=== PATIENT | female | born 1960 | race Caucasian/White ===

== ENCOUNTER 2019-01-26 12:26 | Observation (INO) | payer BC ==
[2019-01-26] MEDS ORDERED: Ondansetron 8 MG Tab.DIS PO ONE (12:46)
[2019-01-26] MEDS ORDERED: Sodium Chloride 0.9% 1,000 ML IV ONE ×3 (12:47→14:42)
--- NOTE | 2019-01-26 12:48 | EDM.PDOC ---
ED HPI GENERAL MEDICAL PROBLEM - General Chief Complaint: Gastrointestinal Problem Stated Complaint: VOMMITING,STOMACH PAIN, DIAHREAD Time Seen by Provider: 01/26/19 12:33 Source of Information: Reports: Patient, Family History Limitations: Reports: No Limitations - History of Present Illness INITIAL COMMENTS - FREE TEXT/NARRATIVE: 59 y.o.w.f with a H/O NIDDM, came with her to the ED due to severe N/V/ D. One of her family members had similar symptoms a few days ago. Food poisoning unlikely. Pt passed several brown colored liquid, not bloody, stool and vomited multiple times SEAT MENDER. No SOB, NO CP. Her abdomen feels bloated and she has mid upper abd. pain. Pt felt dizzy on arrival as well. No other acute med issues at this time. BP 123/88 RR 20 Pulse ox 100% on RA HR 112, Temp 36.8 Onset Date: 01/25/19 Onset Time: 09:00 Duration: Day(s):, Intermittent Location: Reports: Abdomen Quality: Reports: Dull Severity: Moderate Improves with: Reports: Rest Worsens with: Reports: Movement Context: Reports: Sick Contact (with a family member) Associated Symptoms: Reports: Nausea/Vomiting, Weakness Abdominal Pain Score (Numeric/FACES): 2 generalyzed body aches/restless leg syndrome Pain Score (Numeric/FACES): 2 - Related Data Allergies Allergy/AdvReac Type Severity Reaction Status Date / Time Sulfa (Sulfonamide Allergy Hives Verified 01/26/19 12:29 Antibiotics) Home Meds: Home Meds DULoxetine HCl [Duloxetine HCl] 60 mg PO DAILY 01/26/19 [History] Empagliflozin [Jardiance] 10 mg PO DAILY 01/26/19 [History] Gabapentin [Neurontin] 600 mg PO DAILY 01/26/19 [History] Liraglutide [Victoza] 1.8 unit SUBCUT DAILY 01/26/19 [History] Losartan Potassium 25 mg PO DAILY 01/26/19 [History] Pen Needle, Diabetic [Ulticare Pen Needle] 1 each .ROUTE ASDIRECTED 01/26/19 [ History] Pravastatin Sodium 10 mg PO DAILY 01/26/19 [History] Rotigotine [Neupro] 1 patch TOP DAILY 01/26/19 [History] buPROPion [buPROPion XL] 150 mg PO BEDTIME 01/26/19 [History] metFORMIN HCl [Metformin HCl] 1,000 mg PO BIDMEALS 01/26/19 [History] Ondansetron [Zofran ODT] 4 mg PO Q6H PRN #15 tab.dis 01/27/19 [Rx] Past Medical History HEENT History: Reports: Impaired Vision Cardiovascular History: Reports: High Cholesterol Psychiatric History: Reports: Anxiety, Depression Endocrine/Metabolic History: Reports: Diabetes, Type II, Obesity/BMI 30+ Social & Family History - Tobacco Use Smoking Status *Q: Never Smoker ED ROS GENERAL - Review of Systems Review Of Systems: See Below Constitutional: Reports: Malaise, Weakness HEENT: Reports: No Symptoms Respiratory: Reports: No Symptoms Cardiovascular: Reports: No Symptoms Endocrine: Reports: High Glucose GI/Abdominal: Reports: Abdominal Pain (epigastric) : Reports: No Symptoms Musculoskeletal: Reports: No Symptoms Skin: Reports: No Symptoms Neurological: Reports: No Symptoms Psychiatric: Reports: No Symptoms Hematologic/Lymphatic: Reports: No Symptoms Immunologic: Reports: No Symptoms ED EXAM, GI/ABD - Physical Exam Exam: See Below Exam Limited By: No Limitations General Appearance: Alert, WD/WN, Moderate Distress Eyes: Bilateral: Normal Appearance Ears: Normal External Exam Nose: Normal Inspection Throat/Mouth: Normal Inspection, Normal Lips, Normal Voice, No Airway Compromise , Other (dry mucosal membrane) Head: Atraumatic, Normocephalic Neck: Normal Inspection, Supple, Non-Tender, Full Range of Motion Respiratory/Chest: No Respiratory Distress, Lungs Clear Cardiovascular: Normal Peripheral Pulses, Regular Rate, Rhythm, No Edema GI/Abdominal Exam: No Organomegaly, Tender (epigastric), Abnormal Bowel Sounds (Female) Exam: Deferred Rectal (Female) Exam: Deferred Back Exam: Normal Inspection, Full Range of Motion Extremities: Normal Inspection, Normal Range of Motion, Non-Tender, No Pedal Edema, Normal Capillary Refill Neurological: Alert, Oriented, CN II-XII Intact, Normal Cognition, Abnormal Gait (too weak to ambulate) Psychiatric: Normal Affect, Normal Mood Skin Exam: Warm, Dry, Intact, Normal Color, No Rash Lymphatic: No Adenopathy Course - Vital Signs Text/Narrative:: 59 y.o.w.f with a H/O NIDDM, came with her to the ED due to severe N/V/ D. One of her family members had similar symptoms a few days ago. Food poisoning unlikely. Pt passed several brown colored liquid, not bloody, stool and vomited multiple times SEAT MENDER. No SOB, NO CP. Her abdomen feels bloated and she has mid upper abd. pain. Pt felt dizzy on arrival as well. No other acute med issues at this time. BP 123/88 RR 20 Pulse ox 100% on RA HR 112, Temp 36.8 PE: 59 y.o.w.f with NIDDM came to the ED with N/V/D weakness and dizziness Imaging: Not indicated. Labs: Mg 1.6, K 4.2 Na 137 Carbon Dioxide 22 BUN 20 Cr 0.9 GFR > 60 BUN/CR 22 Glc 234 Hgb 16.8, UA: Pos for UTI , >1000mg Glc in urine Impression: Gastroenteritis, Hypomagnesia, Dehydration,UTI, Gen weakness Tx: 2 liters NS, Magnesium i v, Levaquin, Zofran, Bentyl, Protonix, Tylenol, GI cocktail, Imodium 4 mg, 2mg 2mg, Reexam: Overall improved but too weak to ambulate. 5.35 pm Consultation: Dr. Rizvi, Hospitalist: Accepted the pt to admit to OBS Plan: Admit to OBS, Tx plan discussed with family Last Recorded V/S: Last Vital Signs Temp 36.6 C 01/27/19 12:00 Pulse 90 01/27/19 12:00 Resp 14 01/27/19 12:00 BP 113/73 01/27/19 12:00 Pulse Ox 97 01/27/19 12:00 - Orders/Labs/Meds Labs: Laboratory Tests 01/26/19 01/26/19 01/26/19 Range/Units 13:00 13:00 13:00 WBC 9.3 (4.5-12.0) X10-3/uL RBC 5.49 H (3.23-5.20) x10(6)uL Hgb 16.6 H (11.5-15.5) g/dL Hct 48.3 (30.0-51.3) % MCV 88.0 (80-96) fL MCH 30.2 (27.7-33.6) pg MCHC 34.3 (32.2-35.4) g/dL RDW 13.1 (11.5-15.5) % Plt Count 344 (125-369) X10(3)uL MPV 6.8 L (7.4-10.4) fL Add Manual Diff Yes Neutrophils % (Manual) 89 H (46-82) % Lymphocytes % (Manual) 4 L (13-37) % Monocytes % (Manual) 6 (4-12) % Eosinophils % (Manual) 1 (0-5) % Sodium 137 (135-145) mmol/L Potassium 4.2 (3.5-5.3) mmol/L Chloride 100 (100-110) mmol/L Carbon Dioxide 22 (21-32) mmol/L BUN 20 H (7-18) mg/dL Creatinine 0.9 (0.55-1.02) mg/dL Est Cr Clr Drug Dosing TNP Estimated GFR (MDRD) > 60 (>60) BUN/Creatinine Ratio 22.2 H (9-20) Glucose 242 H (80-116) mg/dL Calcium 9.7 (8.6-10.2) mg/dL Magnesium 1.6 L (1.8-2.5) mg/dL Troponin I (<0.017-0.056) ng/mL Urine Color (YELLOW) Urine Appearance (CLEAR) Urine pH (5.0-6.5) Ur Specific [place] (1.010-1.025) Urine Protein (NEGATIVE) mg/dL Urine Glucose (UA) (NORMAL) mg/dL Urine Ketones (NEGATIVE) mg/dL Urine Occult Blood (NEGATIVE) Urine Nitrite (NEGATIVE) Urine Bilirubin (NEGATIVE) Urine Urobilinogen (NEGATIVE) mg/dL Ur Leukocyte Esterase (NEGATIVE) Urine RBC (0-5) Urine WBC (0-5) Ur Squamous Epith Cells (NS,R,O) Urine Bacteria (NS) 01/26/19 01/26/19 Range/Units 13:00 15:19 WBC (4.5-12.0) X10-3/uL RBC (3.23-5.20) x10(6)uL Hgb (11.5-15.5) g/dL Hct (30.0-51.3) % MCV (80-96) fL MCH (27.7-33.6) pg MCHC (32.2-35.4) g/dL RDW (11.5-15.5) % Plt Count (125-369) X10(3)uL MPV (7.4-10.4) fL Add Manual Diff Neutrophils % (Manual) (46-82) % Lymphocytes % (Manual) (13-37) % Monocytes % (Manual) (4-12) % Eosinophils % (Manual) (0-5) % Sodium (135-145) mmol/L Potassium (3.5-5.3) mmol/L Chloride (100-110) mmol/L Carbon Dioxide (21-32) mmol/L BUN (7-18) mg/dL Creatinine (0.55-1.02) mg/dL Est Cr Clr Drug Dosing Estimated GFR (MDRD) (>60) BUN/Creatinine Ratio (9-20) Glucose (80-116) mg/dL Calcium (8.6-10.2) mg/dL Magnesium (1.8-2.5) mg/dL Troponin I < 0.017 L (<0.017-0.056) ng/mL Urine Color Yellow (YELLOW) Urine Appearance Clear (CLEAR) Urine pH 5.0 (5.0-6.5) Ur Specific [place] 1.015 (1.010-1.025) Urine Protein Negative (NEGATIVE) mg/dL Urine Glucose (UA) >1000 H (NORMAL) mg/dL Urine Ketones 50 H (NEGATIVE) mg/dL Urine Occult Blood Negative (NEGATIVE) Urine Nitrite Negative (NEGATIVE) Urine Bilirubin Negative (NEGATIVE) Urine Urobilinogen Normal (NEGATIVE) mg/dL Ur Leukocyte Esterase Moderate H (NEGATIVE) Urine RBC 0-5 (0-5) Urine WBC 5-10 H (0-5) Ur Squamous Epith Cells Occasional (NS,R,O) Urine Bacteria Few H (NS) Meds: Medications Discontinued Medications Generic Name Dose Route Start Last Admin Trade Name Freq PRN Reason Stop Dose Admin Acetaminophen 650 mg 01/26/19 16:03 01/26/19 16:23 Tylenol PO 01/26/19 16:04 650 mg NOW STA Administration Acetaminophen 650 mg 01/26/19 22:48 01/27/19 07:37 Tylenol PO 650 mg Q6H PRN Administration Fever Al Hydroxide/Mg Hydroxide 15 0 ml 01/26/19 16:18 01/26/19 16:24 ml/ Lidocaine HCl 15 ml PO 01/26/19 16:19 15 ml ONETIME ONE Administration Dicyclomine HCl 10 mg 01/26/19 18:10 01/26/19 18:14 Bentyl PO 01/26/19 18:11 10 mg ONETIME ONE Administration Sodium Chloride 1,000 mls @ 500 mls/hr 01/26/19 12:47 01/26/19 13:00 Normal Saline IV 01/26/19 14:46 500 mls/hr .BOLUS ONE Administration Sodium Chloride 1,000 mls @ 999 mls/hr 01/26/19 13:48 01/26/19 13:49 Normal Saline IV 01/26/19 14:48 999 mls/hr .BOLUS ONE Administration Sodium Chloride 1,000 mls @ 500 mls/hr 01/26/19 14:42 01/26/19 14:45 Normal Saline IV 01/26/19 16:41 500 mls/hr .BOLUS ONE Administration Magnesium Sulfate 4 gm/ Premix 50 mls @ 150 mls/hr 01/26/19 15:28 01/26/19 15 :37 IV 01/26/19 15:29 150 mls/hr ONETIME ONE Administration Sodium Chloride 1,000 mls @ 125 mls/hr 01/26/19 23:00 01/27/19 06:54 Normal Saline IV 125 mls/hr ASDIRECTED [facility] Administration Insulin Human Lispro 0 unit 01/27/19 08:00 01/27/19 12:05 Humalog SUBCUT Not Given TIDMEALS [facility] Protocol Insulin Human Regular 0 unit 01/26/19 23:00 01/27/19 01:12 Humulin R SUBCUT Not Given Q4H [facility] Protocol Levofloxacin 500 mg 01/26/19 15:35 01/26/19 15:52 Levaquin PO 01/26/19 15:36 500 mg ONETIME ONE Administration Loperamide HCl 4 mg 01/26/19 16:15 01/26/19 16:23 Imodium PO 01/26/19 16:16 4 mg ONETIME ONE Administration Loperamide HCl 2 mg 01/26/19 17:44 01/26/19 17:50 Imodium PO 01/26/19 17:45 2 mg ONETIME ONE Administration Loperamide HCl 2 mg 01/26/19 18:49 01/26/19 18:52 Imodium PO 01/26/19 18:50 2 mg ONETIME ONE Administration Morphine Sulfate 4 mg 01/26/19 22:48 01/26/19 23:27 Morphine IVPUSH 01/26/19 22:49 4 mg ONETIME ONE Administration Ondansetron HCl 8 mg 01/26/19 12:46 01/26/19 13:00 Zofran Odt PO 01/26/19 12:47 8 mg ONETIME ONE Administration Ondansetron HCl 4 mg 01/26/19 17:38 01/26/19 22:52 Zofran IV 4 mg Q4H PRN Administration Nausea/Vomiting Pantoprazole Sodium 40 mg 01/26/19 14:45 01/26/19 14:49 Protonix Iv IVPUSH 01/26/19 14:46 40 mg ONETIME ONE Administration Sodium Chloride 10 ml 01/26/19 13:15 01/26/19 22:53 Saline Flush FLUSH 10 ml ASDIRECTED PRN Administration Keep Vein Open Departure - Departure Time of Disposition: 19:00 Disposition: Refer to Observation Condition: Fair Clinical Impression: Gastroenteritis - Discharge Information
[2019-01-26] MEDS: Sodium Chloride 0.9% 10 ML Syringe FLUSH PRN ×2 (13:09→22:53)
[2019-01-26] MEDS ORDERED: Pantoprazole 40 MG Vial IVPUSH ONE (14:45)
[2019-01-26] MEDS ORDERED: Magnesium Sulfate/Water 4 GM in Premix Bag 1 BAG IV ONE (15:28)
[2019-01-26] MEDS ORDERED: Levofloxacin 500 MG Tab PO ONE (15:35)
[2019-01-26] MEDS ORDERED: Acetaminophen 325 MG Tab PO STA (16:03)
[2019-01-26] MEDS ORDERED: Loperamide 2 MG Cap PO ONE ×3 (16:15→18:49)
[2019-01-26] MEDS ORDERED: Alum Hydroxide/Mag Hydroxide 15 ML, Lidocaine 2% 15 ML PO ONE ×2 (16:18)
[2019-01-26] MEDS ORDERED: Ondansetron 4 MG/2 ML SDV IV PRN (17:38)
[2019-01-26] MEDS ORDERED: Dicyclomine 10 MG Cap PO ONE (18:10)
--- NOTE | 2019-01-26 22:58 | PCM.PN ---
- General Info Date of Service: 01/26/19 Admission Dx/Problem (Free Text): 59-year-old female who was admitted earlier today secondary to presumed gastroenteritis with vomiting, diarrhea and some abdominal discomfort. The nursing staff asked me to evaluate the patient secondary to her having aching all over, continuing abdominal pain and low-grade fever. She has had 1 other loose stool since admission. Her abdominal pain is crampy and is mostly upper abdomen. She has a dry mouth. She is aching all over. Her blood sugars have been in the greater than 200 range. Her temperature is 100.7F. Functional Status: Reports: Other (Still with pain and otherwise as above.) Pain Score: 6 - Review of Systems General: Reports: Fever HEENT: Reports: Other (Dry mouth) Pulmonary: Reports: No Symptoms Cardiovascular: Reports: No Symptoms Gastrointestinal: Reports: Abdominal Pain (Cramping in her upper abdomen), Diarrhea Genitourinary: Reports: No Symptoms Musculoskeletal: Reports: Other (Aching all over) Skin: Reports: No Symptoms Neurological: Reports: Weakness (Feels generally weak) - Patient Data Vitals - Most Recent: Last Vital Signs Temp 36.4 C 01/26/19 18:06 Pulse 110 H 01/26/19 18:06 Resp 20 01/26/19 18:06 BP 129/80 01/26/19 18:06 Pulse Ox 95 01/26/19 18:06 Weight - Most Recent: 77.111 kg Lab Results Last 24 Hours: Laboratory Results - last 24 hr 01/26/19 01/26/19 01/26/19 Range/Units 13:00 13:00 13:00 WBC 9.3 (4.5-12.0) X10-3/uL RBC 5.49 H (3.23-5.20) x10(6)uL Hgb 16.6 H (11.5-15.5) g/dL Hct 48.3 (30.0-51.3) % MCV 88.0 (80-96) fL MCH 30.2 (27.7-33.6) pg MCHC 34.3 (32.2-35.4) g/dL RDW 13.1 (11.5-15.5) % Plt Count 344 (125-369) X10(3)uL MPV 6.8 L (7.4-10.4) fL Add Manual Diff Yes Neutrophils % (Manual) 89 H (46-82) % Lymphocytes % (Manual) 4 L (13-37) % Monocytes % (Manual) 6 (4-12) % Eosinophils % (Manual) 1 (0-5) % Sodium 137 (135-145) mmol/L Potassium 4.2 (3.5-5.3) mmol/L Chloride 100 (100-110) mmol/L Carbon Dioxide 22 (21-32) mmol/L BUN 20 H (7-18) mg/dL Creatinine 0.9 (0.55-1.02) mg/dL Est Cr Clr Drug Dosing TNP Estimated GFR (MDRD) > 60 (>60) BUN/Creatinine Ratio 22.2 H (9-20) Glucose 242 H (80-116) mg/dL Calcium 9.7 (8.6-10.2) mg/dL Magnesium 1.6 L (1.8-2.5) mg/dL Troponin I (<0.017-0.056) ng/mL Urine Color (YELLOW) Urine Appearance (CLEAR) Urine pH (5.0-6.5) Ur Specific [place] (1.010-1.025) Urine Protein (NEGATIVE) mg/dL Urine Glucose (UA) (NORMAL) mg/dL Urine Ketones (NEGATIVE) mg/dL Urine Occult Blood (NEGATIVE) Urine Nitrite (NEGATIVE) Urine Bilirubin (NEGATIVE) Urine Urobilinogen (NEGATIVE) mg/dL Ur Leukocyte Esterase (NEGATIVE) Urine RBC (0-5) Urine WBC (0-5) Ur Squamous Epith Cells (NS,R,O) Urine Bacteria (NS) 01/26/19 01/26/19 Range/Units 13:00 15:19 WBC (4.5-12.0) X10-3/uL RBC (3.23-5.20) x10(6)uL Hgb (11.5-15.5) g/dL Hct (30.0-51.3) % MCV (80-96) fL MCH (27.7-33.6) pg MCHC (32.2-35.4) g/dL RDW (11.5-15.5) % Plt Count (125-369) X10(3)uL MPV (7.4-10.4) fL Add Manual Diff Neutrophils % (Manual) (46-82) % Lymphocytes % (Manual) (13-37) % Monocytes % (Manual) (4-12) % Eosinophils % (Manual) (0-5) % Sodium (135-145) mmol/L Potassium (3.5-5.3) mmol/L Chloride (100-110) mmol/L Carbon Dioxide (21-32) mmol/L BUN (7-18) mg/dL Creatinine (0.55-1.02) mg/dL Est Cr Clr Drug Dosing Estimated GFR (MDRD) (>60) BUN/Creatinine Ratio (9-20) Glucose (80-116) mg/dL Calcium (8.6-10.2) mg/dL Magnesium (1.8-2.5) mg/dL Troponin I < 0.017 L (<0.017-0.056) ng/mL Urine Color Yellow (YELLOW) Urine Appearance Clear (CLEAR) Urine pH 5.0 (5.0-6.5) Ur Specific [place] 1.015 (1.010-1.025) Urine Protein Negative (NEGATIVE) mg/dL Urine Glucose (UA) >1000 H (NORMAL) mg/dL Urine Ketones 50 H (NEGATIVE) mg/dL Urine Occult Blood Negative (NEGATIVE) Urine Nitrite Negative (NEGATIVE) Urine Bilirubin Negative (NEGATIVE) Urine Urobilinogen Normal (NEGATIVE) mg/dL Ur Leukocyte Esterase Moderate H (NEGATIVE) Urine RBC 0-5 (0-5) Urine WBC 5-10 H (0-5) Ur Squamous Epith Cells Occasional (NS,R,O) Urine Bacteria Few H (NS) Med Orders - Current: Current Medications Acetaminophen (Tylenol) 650 mg PO Q6H PRN PRN Reason: Fever Sodium Chloride (Normal Saline) 1,000 mls @ 125 mls/hr IV ASDIRECTED [facility] Insulin Human Regular (Humulin R) 0 unit SUBCUT Q4H [facility]; Protocol Morphine Sulfate (Morphine) 4 mg IVPUSH ONETIME ONE Stop: 01/26/19 22:49 Ondansetron HCl (Zofran) 4 mg IV Q4H PRN PRN Reason: Nausea/Vomiting Sodium Chloride (Saline Flush) 10 ml FLUSH ASDIRECTED PRN PRN Reason: Keep Vein Open Last Admin: 01/26/19 13:09 Dose: 10 ml Discontinued Medications Acetaminophen (Tylenol) 650 mg PO NOW STA Stop: 01/26/19 16:04 Last Admin: 01/26/19 16:23 Dose: 650 mg Al Hydroxide/Mg Hydroxide 15 (ml/ Lidocaine HCl 15 ml) 0 ml PO ONETIME ONE Stop: 01/26/19 16:19 Last Admin: 01/26/19 16:24 Dose: 15 ml Dicyclomine HCl (Bentyl) 10 mg PO ONETIME ONE Stop: 01/26/19 18:11 Last Admin: 01/26/19 18:14 Dose: 10 mg Sodium Chloride (Normal Saline) 1,000 mls @ 500 mls/hr IV .BOLUS ONE Stop: 01/26/19 14:46 Last Admin: 01/26/19 13:00 Dose: 500 mls/hr Sodium Chloride (Normal Saline) 1,000 mls @ 999 mls/hr IV .BOLUS ONE Stop: 01/26/19 14:48 Last Admin: 01/26/19 13:49 Dose: 999 mls/hr Sodium Chloride (Normal Saline) 1,000 mls @ 500 mls/hr IV .BOLUS ONE Stop: 01/26/19 16:41 Last Admin: 01/26/19 14:45 Dose: 500 mls/hr Magnesium Sulfate 4 gm/ Premix 50 mls @ 150 mls/hr IV ONETIME ONE Stop: 01/26/19 15:29 Last Admin: 01/26/19 15:37 Dose: 150 mls/hr Levofloxacin (Levaquin) 500 mg PO ONETIME ONE Stop: 01/26/19 15:36 Last Admin: 01/26/19 15:52 Dose: 500 mg Loperamide HCl (Imodium) 4 mg PO ONETIME ONE Stop: 01/26/19 16:16 Last Admin: 01/26/19 16:23 Dose: 4 mg Loperamide HCl (Imodium) 2 mg PO ONETIME ONE Stop: 01/26/19 17:45 Last Admin: 01/26/19 17:50 Dose: 2 mg Loperamide HCl (Imodium) 2 mg PO ONETIME ONE Stop: 01/26/19 18:50 Last Admin: 01/26/19 18:52 Dose: 2 mg Ondansetron HCl (Zofran Odt) 8 mg PO ONETIME ONE Stop: 01/26/19 12:47 Last Admin: 01/26/19 13:00 Dose: 8 mg Pantoprazole Sodium (Protonix Iv) 40 mg IVPUSH ONETIME ONE Stop: 01/26/19 14:46 Last Admin: 01/26/19 14:49 Dose: 40 mg - Exam General: Alert, Oriented, Moderate Distress, Other (Appears in some discomfort) HEENT: Pupils Equal, Pupils Reactive, EOMI, Other (Dry mucous membranes) Neck: Supple, Trachea Midline Lungs: Clear to Auscultation, Normal Respiratory Effort Cardiovascular: No Murmurs, Tachycardia GI/Abdominal Exam: No Mass, Tender (In her upper abdomen, mostly left sided.), Abnormal Bowel Sounds (Some increased bowel sounds.), Other (Lower abdomen is completely nontender even with deep palpation.) Back Exam: Normal Inspection Extremities: Normal Inspection Skin: Warm, Dry, Intact Neurological: No New Focal Deficit Psy/Mental Status: Alert - Problem List Review Problem List Initiated/Reviewed/Updated: Yes - My Orders Last 24 Hours: My Active Orders 01/26/19 22:48 Acetaminophen [Tylenol] 650 mg PO Q6H PRN Morphine 4 mg IVPUSH ONETIME ONE 01/26/19 23:00 Insulin Regular, Human [HumuLIN R] See Protocol SUBCUT Q4H Sodium Chloride 0.9% @ 125 MLS/HR (1000ml) Sodium Chloride 0.9% [Normal Saline] 1,000 ml IV ASDIRECTED - Assessment Assessment:: 59-year-old female with vomiting, diarrhea and abdominal discomfort with low- grade fever and still appears somewhat dehydrated. She is also having elevated blood sugars. She is somewhat tachycardic but her blood pressure is normal. She is having abdominal tenderness upper abdomen but her lower abdomen is quite benign at this point. - Plan Plan:: I will place the patient on normal saline IV fluids at 125 mL per hour. I have also ordered an oral dose of Tylenol now and when necessary every 6 hours. I have also ordered a one-time dose of morphine and I have asked the nursing staff give the patient Zofran with this. I have also ordered Accu-Cheks with a sliding scale of insulin. At this point, we'll continue with this plan of care and I have told the patient to limit her by mouth intake. Dr. Rizvi to reevaluate the patient in the morning.
[2019-01-26] MEDS ORDERED: Insulin Regular, Human 100 Units/ML 3 ML Vial SUBCUT SCH (23:00)
[2019-01-26] MEDS: Sodium Chloride 0.9% 1,000 ML IV SCH (23:00)
[2019-01-26] MEDS: Acetaminophen 325 MG Tab PO PRN (23:28)
[2019-01-27] MEDS: Sodium Chloride 0.9% 1,000 ML IV SCH (06:54)
[2019-01-27] MEDS: Acetaminophen 325 MG Tab PO PRN (07:37)
--- NOTE | 2019-01-27 08:50 | PCM.HP ---
H&P History of Present Illness - General Date of Service: 01/27/19 Admit Problem/Dx: 59-year-old female who was admitted earlier today secondary to presumed gastroenteritis with vomiting, diarrhea and some abdominal discomfort. The nursing staff asked me to evaluate the patient secondary to her having aching all over, continuing abdominal pain and low-grade fever. She has had 1 other loose stool since admission. Her abdominal pain is crampy and is mostly upper abdomen. She has a dry mouth. She is aching all over. Her blood sugars have been in the greater than 200 range. Her temperature is 100.7F. Source of Information: Patient, RN Notes Reviewed History Limitations: Reports: No Limitations - History of Present Illness Initial Comments - Free Text/Narative: Terri is a 59-year-old female with abdominal pain nausea vomiting diarrhea. This was sudden nausea yesterday and got worse through the day she was so weak and dehydrated with the ER. She feels better this morning. She was given Zofran , morphine and more than 3 L of IV fluids. At least one other family members had similar symptoms. She has a history of high cholesterol, type 2 diabetes; controlled. She also has anxiety and depression that is stable. Abdominal Pain Score (Numeric/FACES): 2 generalyzed body aches/restless leg syndrome Pain Score (Numeric/FACES): 2 - Related Data Allergies/Adverse Reactions: Allergies Allergy/AdvReac Type Severity Reaction Status Date / Time Sulfa (Sulfonamide Allergy Hives Verified 01/26/19 12:29 Antibiotics) Home Medications: Home Meds DULoxetine HCl [Duloxetine HCl] 60 mg PO DAILY 01/26/19 [History] Empagliflozin [Jardiance] 10 mg PO DAILY 01/26/19 [History] Gabapentin [Neurontin] 600 mg PO DAILY 01/26/19 [History] Liraglutide [Victoza] 1.8 unit SUBCUT DAILY 01/26/19 [History] Losartan Potassium 25 mg PO DAILY 01/26/19 [History] Pen Needle, Diabetic [Ulticare Pen Needle] 1 each .ROUTE ASDIRECTED 01/26/19 [ History] Pravastatin Sodium 10 mg PO DAILY 01/26/19 [History] Rotigotine [Neupro] 1 patch TOP DAILY 01/26/19 [History] buPROPion [buPROPion XL] 150 mg PO BEDTIME 01/26/19 [History] metFORMIN HCl [Metformin HCl] 1,000 mg PO BIDMEALS 01/26/19 [History] Past Medical History HEENT History: Reports: Impaired Vision Cardiovascular History: Reports: High Cholesterol Psychiatric History: Reports: Anxiety, Depression Endocrine/Metabolic History: Reports: Diabetes, Type II, Obesity/BMI 30+ Social & Family History - Family History Family Medical History: Noncontributory - Tobacco Use Smoking Status *Q: Never Smoker - Caffeine Use Caffeine Use: Reports: Coffee, Soda - Recreational Drug Use Recreational Drug Use: No H&P Review of Systems - Review of Systems: Review Of Systems: ROS reveals no pertinent complaints other than HPI. Exam - Exam Exam: See Below - Vital Signs Vital Signs: Last Vital Signs Temp 99.4 F 01/27/19 03:23 Pulse 115 H 01/27/19 03:23 Resp 20 01/27/19 03:23 BP 106/72 01/27/19 03:23 Pulse Ox 93 L 01/27/19 03:23 Weight: 77.111 kg - Exam General: Alert, Oriented, 4 HEENT: PERRLA, Hearing Intact, Mucosa Moist & [place], Nares Patent, Normal Nasal Septum, Posterior Pharynx Clear, Conjunctiva Clear, EOMI, EACs Clear, TMs Clear Neck: Supple, Trachea Midline, 2 Lungs: Clear to Auscultation, Normal Respiratory Effort Cardiovascular: Regular Rate, Regular Rhythm GI/Abdominal Exam: Distended, Guarding (Female) Exam: Deferred Rectal (Female) Exam: Deferred Back Exam: Normal Inspection, Full Range of Motion, NT Extremities: Normal Inspection, Normal Range of Motion, Non-Tender, No Pedal Edema, Normal Capillary Refill Skin: Warm, Dry, Intact Neurological: Cranial Nerves Intact, Reflexes Equal Bilateral Neuro Extensive - Mental Status: Alert, Oriented x3, Normal Mood/Affect, Normal Cognition Neuro Extensive - Motor, Sensory, Reflexes: CN II-XII Intact, Normal Gait, Normal Reflexes Psychiatric: Alert, Normal Affect, Normal Mood - Patient Data Lab Results Last 24 hrs: Laboratory Results - last 24 hr 01/26/19 01/26/19 01/26/19 Range/Units 13:00 13:00 13:00 WBC 9.3 (4.5-12.0) X10-3/uL RBC 5.49 H (3.23-5.20) x10(6)uL Hgb 16.6 H (11.5-15.5) g/dL Hct 48.3 (30.0-51.3) % MCV 88.0 (80-96) fL MCH 30.2 (27.7-33.6) pg MCHC 34.3 (32.2-35.4) g/dL RDW 13.1 (11.5-15.5) % Plt Count 344 (125-369) X10(3)uL MPV 6.8 L (7.4-10.4) fL Add Manual Diff Yes Neutrophils % (Manual) 89 H (46-82) % Lymphocytes % (Manual) 4 L (13-37) % Monocytes % (Manual) 6 (4-12) % Eosinophils % (Manual) 1 (0-5) % Sodium 137 (135-145) mmol/L Potassium 4.2 (3.5-5.3) mmol/L Chloride 100 (100-110) mmol/L Carbon Dioxide 22 (21-32) mmol/L BUN 20 H (7-18) mg/dL Creatinine 0.9 (0.55-1.02) mg/dL Est Cr Clr Drug Dosing TNP Estimated GFR (MDRD) > 60 (>60) BUN/Creatinine Ratio 22.2 H (9-20) Glucose 242 H (80-116) mg/dL POC Glucose (80-116) mg/dL Calcium 9.7 (8.6-10.2) mg/dL Magnesium 1.6 L (1.8-2.5) mg/dL Troponin I (<0.017-0.056) ng/mL Urine Color (YELLOW) Urine Appearance (CLEAR) Urine pH (5.0-6.5) Ur Specific [place] (1.010-1.025) Urine Protein (NEGATIVE) mg/dL Urine Glucose (UA) (NORMAL) mg/dL Urine Ketones (NEGATIVE) mg/dL Urine Occult Blood (NEGATIVE) Urine Nitrite (NEGATIVE) Urine Bilirubin (NEGATIVE) Urine Urobilinogen (NEGATIVE) mg/dL Ur Leukocyte Esterase (NEGATIVE) Urine RBC (0-5) Urine WBC (0-5) Ur Squamous Epith Cells (NS,R,O) Urine Bacteria (NS) 01/26/19 01/26/19 01/26/19 Range/Units 13:00 15:19 23:12 WBC (4.5-12.0) X10-3/uL RBC (3.23-5.20) x10(6)uL Hgb (11.5-15.5) g/dL Hct (30.0-51.3) % MCV (80-96) fL MCH (27.7-33.6) pg MCHC (32.2-35.4) g/dL RDW (11.5-15.5) % Plt Count (125-369) X10(3)uL MPV (7.4-10.4) fL Add Manual Diff Neutrophils % (Manual) (46-82) % Lymphocytes % (Manual) (13-37) % Monocytes % (Manual) (4-12) % Eosinophils % (Manual) (0-5) % Sodium (135-145) mmol/L Potassium (3.5-5.3) mmol/L Chloride (100-110) mmol/L Carbon Dioxide (21-32) mmol/L BUN (7-18) mg/dL Creatinine (0.55-1.02) mg/dL Est Cr Clr Drug Dosing Estimated GFR (MDRD) (>60) BUN/Creatinine Ratio (9-20) Glucose (80-116) mg/dL POC Glucose 211 H (80-116) mg/dL Calcium (8.6-10.2) mg/dL Magnesium (1.8-2.5) mg/dL Troponin I < 0.017 L (<0.017-0.056) ng/mL Urine Color Yellow (YELLOW) Urine Appearance Clear (CLEAR) Urine pH 5.0 (5.0-6.5) Ur Specific [place] 1.015 (1.010-1.025) Urine Protein Negative (NEGATIVE) mg/dL Urine Glucose (UA) >1000 H (NORMAL) mg/dL Urine Ketones 50 H (NEGATIVE) mg/dL Urine Occult Blood Negative (NEGATIVE) Urine Nitrite Negative (NEGATIVE) Urine Bilirubin Negative (NEGATIVE) Urine Urobilinogen Normal (NEGATIVE) mg/dL Ur Leukocyte Esterase Moderate H (NEGATIVE) Urine RBC 0-5 (0-5) Urine WBC 5-10 H (0-5) Ur Squamous Epith Cells Occasional (NS,R,O) Urine Bacteria Few H (NS) 01/27/19 Range/Units 06:53 WBC (4.5-12.0) X10-3/uL RBC (3.23-5.20) x10(6)uL Hgb (11.5-15.5) g/dL Hct (30.0-51.3) % MCV (80-96) fL MCH (27.7-33.6) pg MCHC (32.2-35.4) g/dL RDW (11.5-15.5) % Plt Count (125-369) X10(3)uL MPV (7.4-10.4) fL Add Manual Diff Neutrophils % (Manual) (46-82) % Lymphocytes % (Manual) (13-37) % Monocytes % (Manual) (4-12) % Eosinophils % (Manual) (0-5) % Sodium (135-145) mmol/L Potassium (3.5-5.3) mmol/L Chloride (100-110) mmol/L Carbon Dioxide (21-32) mmol/L BUN (7-18) mg/dL Creatinine (0.55-1.02) mg/dL Est Cr Clr Drug Dosing Estimated GFR (MDRD) (>60) BUN/Creatinine Ratio (9-20) Glucose (80-116) mg/dL POC Glucose 211 H (80-116) mg/dL Calcium (8.6-10.2) mg/dL Magnesium (1.8-2.5) mg/dL Troponin I (<0.017-0.056) ng/mL Urine Color (YELLOW) Urine Appearance (CLEAR) Urine pH (5.0-6.5) Ur Specific [place] (1.010-1.025) Urine Protein (NEGATIVE) mg/dL Urine Glucose (UA) (NORMAL) mg/dL Urine Ketones (NEGATIVE) mg/dL Urine Occult Blood (NEGATIVE) Urine Nitrite (NEGATIVE) Urine Bilirubin (NEGATIVE) Urine Urobilinogen (NEGATIVE) mg/dL Ur Leukocyte Esterase (NEGATIVE) Urine RBC (0-5) Urine WBC (0-5) Ur Squamous Epith Cells (NS,R,O) Urine Bacteria (NS) Result Diagrams: 01/26/19 13:00 01/26/19 13:00 - Problem List (1) AGE (acute gastroenteritis) SNOMED Code(s): 64321203 ICD Code: K52.9 - NONINFECTIVE GASTROENTERITIS AND COLITIS, UNSPECIFIED Status: Acute Current Visit: Yes (2) Diabetes type 2, controlled SNOMED Code(s): 43192645, 340815656 ICD Code: E11.9 - TYPE 2 DIABETES MELLITUS WITHOUT COMPLICATIONS Status: Acute Current Visit: Yes Qualifiers: Diabetes mellitus manager terminal insulin use: without custodial use Problem List Initiated/Reviewed/Updated: Yes Orders Last 24hrs: Active Orders 24 hr Category Date Time Status Patient Status [ADT] Routine ADT 01/26/19 17:39 Active Accu Check [Blood Glucose Check, Bedside] [RC] TIDMEALS Care 01/27/19 01:49 Active Blood Glucose Check, Bedside [RC] ONETIME Care 01/26/19 12:46 Inactive Up With Assistance [RC] ASDIRECTED Care 01/26/19 17:38 Active Vital Signs [RC] 08,12,16,20,00,04 Care 01/26/19 17:39 Active CULTURE URINE [] Stat Lab 01/26/19 15:19 Received Acetaminophen [Tylenol] Med 01/26/19 22:48 Active 650 mg PO Q6H PRN Insulin Lispro [HumaLOG] Med 01/27/19 08:00 Active See Protocol SUBCUT TIDMEALS Ondansetron [Zofran] Med 01/26/19 17:38 Active 4 mg IV Q4H PRN Sodium Chloride 0.9% [Normal Saline] 1,000 ml Med 01/26/19 23:00 Active IV ASDIRECTED Sodium Chloride 0.9% [Saline Flush] Med 01/26/19 13:15 Active 10 ml FLUSH ASDIRECTED PRN Resuscitation Status Routine Resus Stat 01/26/19 17:38 Ordered EKG 12 Lead [EK] Routine Ther 01/26/19 16:13 Stop Req Medication Orders Acetaminophen (Tylenol) 650 mg PO Q6H PRN PRN Reason: Fever Last Admin: 01/27/19 07:37 Dose: 650 mg Admin: 01/26/19 23:28 Dose: 650 mg Sodium Chloride (Normal Saline) 1,000 mls @ 125 mls/hr IV ASDIRECTED ELDON Last Admin: 01/27/19 06:54 Dose: 125 mls/hr Infusion: 01/27/19 06:54 Dose: 125 mls/hr Admin: 01/26/19 23:00 Dose: 125 mls/hr Insulin Human Lispro (Humalog) 0 unit SUBCUT [facility]; Protocol Ondansetron HCl (Zofran) 4 mg IV Q4H PRN PRN Reason: Nausea/Vomiting Last Admin: 01/26/19 22:52 Dose: 4 mg Sodium Chloride (Saline Flush) 10 ml FLUSH ASDIRECTED PRN PRN Reason: Keep Vein Open Last Admin: 01/26/19 22:53 Dose: 10 ml Admin: 01/26/19 13:09 Dose: 10 ml Assessment/Plan Comment:: DC home this morning
[2019-01-27] MEDS: Insulin Lispro 100 Unit/ML 3 ML KwikPen SUBCUT SCH ×2 (08:54→12:05)
== END 2019-01-27 12:20 | disposition home or self-care (01) ==
LOC: FB.ED 12:26 → FB.MS 17:39
PROVIDERS: ADMIT Family Medicine; ATTEND Family Medicine
DX: K52.9 Noninfective gastroenteritis and colitis, unspecified (principal); E11.65 Type 2 diabetes mellitus with hyperglycemia; E78.00 Pure hypercholesterolemia, unspecified; F32.9 Major depressive disorder, single episode, unspecified; F41.9 Anxiety disorder, unspecified; Z88.2 Allergy status to sulfonamides; Z79.84 Long term (current) use of oral hypoglycemic drugs; Z79.899 Other long term (current) drug therapy
CPT/HCPCS: 36415; 80048; 81001; 82962; 83735; 84484; 85025; 87077; 87086; 87186; 96361; 96365; 96375; 99285; A9270; C9113; J1815; J2270; J2405; J3475; J7030; G0378